=== PATIENT | male | born 1945 | race Caucasian/White ===

== ENCOUNTER 2018-05-17 11:06 | Inpatient (IN) ==
[2018-05-17] MEDS ORDERED: Metoprolol Tartrate 25 MG Tablet PO ONE (12:13)
[2018-05-17] MEDS ORDERED: Chlorhexidine Gluconate 2% 1 Pack (2 Cloths) TOPICAL ONE (12:13)
[2018-05-17] MEDS ORDERED: Dextrose 5%/NaCl 0.9% Inj 1,000 ML IV.SIG SCH (12:30)
[2018-05-17 12:46] LABS: Prothrombin Time 10.5 sec (9.8-11.6)
[2018-05-17] MEDS ORDERED: Sodium Chlor 0.9% Inj 500 ML IV.SIG SCH (13:00)
[2018-05-17] MEDS ORDERED: Bupivacaine PF 0.5% Inj 30 ML Vial ONE (13:21)
[2018-05-17] MEDS ORDERED: fentaNYL Citrate Inj 100 MCG/2 ML Ampul ONE ×2 (13:26→17:05)
[2018-05-17] MEDS ORDERED: Lidocaine PF 1% Inj 5 ML Syringe INFILTRATN ONE (13:41)
[2018-05-17] MEDS ORDERED: Ketorolac Inj 30 MG/ML (IVP) Vial IV.PUSH ONE (13:41)
[2018-05-17] MEDS ORDERED: Glycopyrrolate Inj 1 MG/5 ML Syringe IV.PUSH ONE (13:41)
[2018-05-17] MEDS ORDERED: Sugammadex Inj 200 MG/2 ML Vial IV.PUSH ONE (14:52)
--- NOTE | 2018-05-17 14:52 | P.OP ---
- Preoperative Diagnosis (1) Diverticulitis (2) Colovesical fistula - Postoperative Diagnosis (1) Colovesical fistula (2) Diverticulitis Date of procedure: 05/17/18 Procedure: Cystoscopy and placement of bilateral ureteral catheters Anesthesia: GETA Surgeon: Ethan Fontanez MD Estimated blood loss (mL): 0 Pathology: none sent Operation and Findings: Indication for urologic procedures: Consulted intraoperatively to pass bilateral ureteral catheters to aid in visualization of this patient's ureters during his colorectal procedure. Urologic procedures in detail: Concurrent with the colorectal surgeons, I proceeded with cystoscopy and placement of bilateral ureteral catheters as follows: Initially cystoscopic evaluation was performed utilizing the rigid cystoscope with the 20 Venezuelan sheath and 30 lens. The urethra was patent without stricture formation. Further passive cystoscope within urinary bladder revealed both right and left ureteral orifice ease to be in correct anatomic position. There was a fistula site noted at the bladder dome region. I proceeded with passing a sensor 0.035 wire up the patient's left ureter until a small amount of resistance was met. A 6 Venezuelan open-ended ureteral catheter was then advanced over the wire 25 cm in a cephalad direction. With the catheter in place, the wire was withdrawn and reintroduced through secondary site by the cystoscope. In similar fashion the contralateral side was accomplished. The bladder was then drained of all irrigant fluid and the cystoscope and guidewire were withdrawn. A 16 [place]an 10 cc [place] catheter was then placed and both ureteral catheters were anchored to the [place] via a connector. All 3 catheters were then placed to gravity drainage. This completes the urologic surgery portion of combined procedures on this patient.
[2018-05-17] MEDS ORDERED: Naloxone Inj 0.4 MG/ML Vial IV.PUSH PRN (17:02)
[2018-05-17] MEDS ORDERED: Potassium Chlor 20 mEq Premix 20 MEQ/100 ML PIGGYBACK IV.SIG PRN (17:03)
[2018-05-17] MEDS ORDERED: Potassium Chlor 40 mEq Premix 40 MEQ/100 ML PIGGYBACK IV.SIG PRN (17:03)
--- NOTE | 2018-05-17 17:03 | XR ---
EXAM DATE: 05/17/2018 4:54 PM EDT AGE/SEX: 72 years / Male INDICATIONS: Evaluate for foreign body. Surgical clamp missing. CLINICAL DATA: This is the patient's initial encounter. Patient reports that signs and symptoms have been present for 1 day and indicates a pain score of Nonresponsive. MEDICAL/SURGICAL HISTORY: Non-responsive. Non-responsive. COMPARISON: No prior exams available for comparison. FINDINGS: No unexpected radiopaque foreign bodies in the visualized .. Nasogastric tube and ureteral stent s are evident. CONCLUSION: No radiopaque surgical clamps. Electronically signed by: Malik Jensen MD 05/17/2018 5:01 PM EDT
[2018-05-17] MEDS ORDERED: Morphine Inj 30 MG/30 ML PCA.VIAL PCA ONE (17:08)
[2018-05-17] MEDS ORDERED: KCL 20 mEq/D5W/LR Inj 1,000 ML ONE (17:20)
--- NOTE | 2018-05-17 17:22 | P.BOP ---
Date of procedure: 05/17/18 Procedure: Sigmoid colectomy,LAR. Closure SB fistula. Colonoscopy Anesthesia: GETA Surgeon: Zachary Gonzalez MD Managing Member: Luis A Dc Estimated blood loss (mL): 200 Condition: stable Disposition: ICU
[2018-05-17] MEDS ORDERED: *morphine SULFATE 10 MG/ML PERIprocedure ONLY ONE (17:39)
[2018-05-17] MEDS ORDERED: *Labetalol HCl Inj 100 MG/20 ML Vial PERIprocedural Use ONLY IV.PUSH ONE (17:47)
[2018-05-17] MEDS ORDERED: *Meperidine Inj 25 MG/ML Vial PERIprocedural Use ONLY ONE (17:55)
[2018-05-17 17:59] LABS: Baso % (Auto) 0.2 % (0.0-2.0); Eos % (Auto) 0.2 % (0.0-4.0); Hematocrit 40.4 % (39.0-51.0); Lymph # (Auto) 1.1 th/mm3 (1.0-4.8); Lymph % (Auto) 15.5 % (9.0-44.0); Mean Corpuscular HGB Conc 34.6 % (32.0-36.0); Mean Corpuscular Hemoglobin 32.1 pg (27.0-34.0); Mean Corpuscular Volume 92.8 fL (80.0-100.0); Mean Platelet Volume 8.3 fL (7.0-11.0); Mono # (Auto) 0.6 th/mm3 (0.0-0.9); Mono % (Auto) 8.2 % (0.0-8.0); Neut # (Auto) 5.2 th/mm3 (1.8-7.7); Neut % (Auto) 75.9 % (16.0-70.0); Platelet Count 270 th/mm3 (150-450); Red Blood Count 4.36 mil/mm3 (4.50-5.90); Red Cell Distribution Width 15.2 % (11.6-17.2); White Blood Count 6.8 th/mm3 (4.0-11.0)
[2018-05-17] MEDS ORDERED: *Enalaprilat Inj 1.25 MG/ML Vial IV.PUSH ONE ×2 (18:03→18:32)
[2018-05-17 18:16] LABS: Calcium 8.3 mg/dL (8.5-10.1); Carbon Dioxide 24.1 meq/L (21.0-32.0); Potassium 4.5 meq/L (3.5-5.1)
[2018-05-17] MEDS ORDERED: HYDROmorphone PF Inj 2 MG/ML Vial ONE (18:29)
--- NOTE | 2018-05-17 18:34 | MP ---
cc: Zachary Gonzalez MD,Zachary Cobos,Blake Echevarria,Ed Fontanez,Ethan Bang MD DATE OF OPERATION: 05/17/2018 PREOPERATIVE DIAGNOSIS: Diverticulitis with colovesical fistula. 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 Proceedure: Sigmoid colectomy,Low anterior resection,Repair small bowel fistula. Intraoperative colonoscopy, Omental flap,Ventral hernia repair. ANESTHESIA: General endotracheal. SURGEON: Zachary Gonzalez MD MEDICAL TECHNICIANS: Luis A Dc MD ESTIMATED BLOOD LOSS: 200 mL OPERATING TIME: Two hours and 20 minutes. OPERATIVE FINDINGS: This patient was referred to me for discussion regarding probable colovesical fistula. He was found to have a bout of what sounded like diverticulitis, treated for that and on the CT scan, he was found to have air in the bladder. Dr. Cobos saw the patient and did a cystoscopy and there was debris in the bladder, but no specific masses or carcinoma or other pathology in the bladder, other than the fistula. The patient has had a previous history of prostate cancer with prostatectomy and a small ventral hernia at the superior portion of his incision. At surgery, exploration of his abdominal cavity revealed that he had a short area of diverticulitis in the midsigmoid stuck to the dome of the bladder with 3 loops of small bowel, specifically ileum stuck to the region of the terminal ileum, mid ileum and proximal ileum. The proximal ileum had a small fistula to this process and there was a small 1 cm abscess in the dome of the bladder, which did not perforate into the bladder visibly. A sigmoid colectomy was done with a colorectal anastomosis and the small bowel fistula was excised and closed. The count was missing an instrument at the end of the procedure. It was felt that this was a clerical error, however, an abdominal x-ray was obtained showing no retained instruments. The estimated blood loss was 200 mL. The liver was palpably normal as was the gallbladder and the remainder of the small bowel and colon. An intraoperative colonoscopy was done showing no lesions in the colon. Dr. Gabino Fontanez placed bilateral ureteral catheters to facilitate identification of the ureters. OPERATIVE TECHNIQUE: The patient was placed on the table in supine position. After adequate general endotracheal anesthesia, the abdomen and perineum were prepped and draped in the usual manner. Transverse infraumbilical skin incision was made and carried down through subcutaneous tissue and the rectus muscles staying above the reservoir for his penile prosthesis device. This reservoir was left inflated during the case and remained inflated during the case. Next Dr. Fontanez did a cystoscopy and placed bilateral ureteral catheters. Our attention was turned to the sigmoid colon, which was mobilized along its peritoneal reflection as was the descending colon and up to and including the splenic flexure. The omentum was mobilized from the transverse colon as well in order to place this in the pelvis between the anastomosis and the bladder fistula site as an omental flap. After the ureteral catheters were placed, our attention was turned to the 3 small bowel loops that were stuck down to the process to the dome of the bladder. The distal ileum was stuck along its mesentery and the small bowel itself was not really attached to the process and this was easily dissected free with sharp dissection. The mid portion of the ileum was dissected free and did not contain a fistula. There was a small serosal tear about 0.5 cm long and this was imbricated with interrupted 3-0 Vicryl seromuscular sutures. The more proximal ileum was stuck down densely and was dissected free of the colovesical fistula site and there was indeed a small 0.25 cm fistula site in the small bowel on its antimesenteric border. This was dealt with by placing a [place] 30 stapling device transversely across the antimesenteric border of the small bowel and excising this fistula. The bowel was quite pliable and this procedure did not narrow the small bowel. Next, the colon was dissected off of the dome of the bladder. Using sharp dissection, the fistula was identified. The dome of the bladder was curetted clean with a curette and the bleeding was fulgurated. No definite hole into the bladder could be identified. The hole in the colon was identified. Next, the superior hemorrhoidal vessels were doubly clamped, cut and doubly ligated with 0 Vicryl ligature and the inferior mesenteric vein was likewise clamped, cut, and ligated. Once this was done, the retrorectal space was entered and the dissection was taken down posterior to the rectum and the lateral pelvic peritoneum was incised bilateral down to but not including the full cul-de-sac. Anteriorly, there were large serpiginous veins that were present and these were dissected free of the cleared area of the anterior rectum and fulgurated. Next, the mesorectum was clamped, cut, and ligated with 0 Vicryl ligature and the mid to upper rectum was prepared for the pursestring stapling device. The pursestring stapling device was placed and then the rectum was divided. Once this was done, the most proximal portion of the colon was chosen for division and an ascending branch. A small left colic branch was clamped, cut, and ligated. There was a long marginal vessel along the bowel and the proximal sigmoid colon was cleared and the mesentery was clamped, cut and ligated and a pursestring stapling device was placed on the proximal sigmoid and the bowel was divided and the specimen was removed from the table. The anvil of the 33 Ethicon EEA stapling device was placed in the proximal bowel and the pursestring was tied. Dr. Dc then went below and placed the EEA instrument transanally and the distal pursestring was tied and the instrument was connected, closed and fired, creating the circular anastomosis. There was no tension on the anastomosis. The blood supply was excellent. The anastomosis was inspected and appeared intact. The removed donuts were thick and intact. Dr. Dc then did a colonoscopy to the cecum and no lesions were identified in the colon. He then insufflated the rectum and the colon with air with saline solution in the pelvis and no air leaks were identified. Next, the abdominal cavity and the pelvis was irrigated thoroughly with 3 liters of saline solution and aspirated dry. A #10 Anjel drain was placed through a separate stab wound in the right lower quadrant, placed in the pelvis posterior to the colorectal anastomosis. The previously mobilized omental flap was taken down. The left colic gutter and placed between the rectum and the bladder. The small bowel, which had been previously repaired was placed in the abdominal cavity in an natural resources extension educator manner and then the abdominal cavity was closed in layers after first repairing a small ventral hernia right at the umbilicus at the top of his previous prostatectomy incision. This was repaired internally using the posterior rectus sheath and a running single strand #1 PDS suture. Once this was done, the abdominal cavity was closed in layers using a double-stranded #1 PDS for the posterior rectus sheath, the muscle layer was irrigated thoroughly with a liter of saline solution, aspirated dry and the anterior rectus sheath was closed with a running #1 double stranded PDS as well. Subcutaneous tissue was irrigated thoroughly with a liter of saline solution. The skin was begun to be closed with running 3-0 Vicryl subcuticular sutures, but prior to finishing closure, abdominal x-ray was taken to make sure that there was no retained instruments and the abdominal x-ray was read as normal by the radiology department. The skin was fully closed and dressings were applied. Sponge, needle and instrument counts were deemed to be correct after the x-ray and the patient left the operating room in good condition. MD DELANEY Moser/radha , 05:34 PM , 05:52 PM MTDD
[2018-05-17] MEDS: Primidone 50 MG Tablet PO SCH (18:43)
[2018-05-17] MEDS: Ketorolac Inj 30 MG/ML (IVP) Vial IV.PUSH PRN (20:23)
[2018-05-17] MEDS: ceFAZolin 2 GM Premix Inj 2 GM/100 ML BAG IV.SIG SCH (20:44)
[2018-05-17] MEDS: Zolpidem Tartrate 5 MG Tablet PO PRN (21:51)
[2018-05-17] MEDS: KCL 20 mEq/D5W/LR Inj 1,000 ML IV.CONT SCH (23:08)
[2018-05-18] MEDS: ceFAZolin 2 GM Premix Inj 2 GM/100 ML BAG IV.SIG SCH ×3 (04:42→20:55)
[2018-05-18] MEDS: KCL 20 mEq/D5W/LR Inj 1,000 ML IV.CONT SCH ×4 (04:43→16:32)
[2018-05-18] MEDS: Morphine Inj 30 MG/30 ML PCA.VIAL PCA PRN ×2 (05:05→16:01)
[2018-05-18 07:27] LABS: Baso % (Auto) 0.1 % (0.0-2.0); Hematocrit 37.6 % (39.0-51.0); Hemoglobin 12.8 gm/dL (13.0-17.0); Lymph # (Auto) 1.1 th/mm3 (1.0-4.8); Lymph % (Auto) 10.5 % (9.0-44.0); Mean Corpuscular HGB Conc 34.1 % (32.0-36.0); Mean Corpuscular Hemoglobin 32.2 pg (27.0-34.0); Mean Corpuscular Volume 94.3 fL (80.0-100.0); Mean Platelet Volume 8.3 fL (7.0-11.0); Mono # (Auto) 1.2 th/mm3 (0.0-0.9); Mono % (Auto) 11.1 % (0.0-8.0); Neut # (Auto) 8.3 th/mm3 (1.8-7.7); Neut % (Auto) 78.3 % (16.0-70.0); Platelet Count 240 th/mm3 (150-450); Red Blood Count 3.99 mil/mm3 (4.50-5.90); Red Cell Distribution Width 15.2 % (11.6-17.2); White Blood Count 10.6 th/mm3 (4.0-11.0)
[2018-05-18 07:51] LABS: Calcium 8.2 mg/dL (8.5-10.1); Carbon Dioxide 26.5 meq/L (21.0-32.0); Potassium 4.4 meq/L (3.5-5.1)
[2018-05-18] MEDS: Primidone 50 MG Tablet PO SCH ×3 (09:04→17:47)
[2018-05-18] MEDS: Pantoprazole Inj 40 MG Vial IV.PUSH SCH (09:05)
--- NOTE | 2018-05-18 09:08 | P.PNCS ---
Subjective Colorectal Surgery Post Op Day #: 1 Interval history: Pt C/O no help from nursing staff to get his liquid diet on the counter. Pt with increased tremors. Objective Result Diagrams: 05/18/18 07:00 05/18/18 07:00 Objective Remarks: VS-S Abd: soft,flat,dressing dry. Assessment and Plan - Plan Transfer to floor,D/W RNs.OOB. Needs assistance
[2018-05-18] MEDS: Heparin - SQ 10,000 UNITS/ML Vial SQ SCH ×2 (13:01→20:55)
[2018-05-18] MEDS: Ketorolac Inj 30 MG/ML (IVP) Vial IV.PUSH PRN (17:47)
[2018-05-18] MEDS: Zolpidem Tartrate 5 MG Tablet PO PRN (20:57)
[2018-05-19] MEDS: Heparin - SQ 10,000 UNITS/ML Vial SQ SCH ×4 (04:15→21:59)
[2018-05-19] MEDS: KCL 20 mEq/D5W/LR Inj 1,000 ML IV.CONT SCH ×3 (06:05→15:45)
[2018-05-19] MEDS: ceFAZolin 2 GM Premix Inj 2 GM/100 ML BAG IV.SIG SCH ×3 (06:07→20:00)
[2018-05-19 07:08] LABS: Calcium 8.1 mg/dL (8.5-10.1); Carbon Dioxide 29.1 meq/L (21.0-32.0); Potassium 3.9 meq/L (3.5-5.1)
[2018-05-19 07:12] LABS: Baso % (Auto) 0.1 % (0.0-2.0); Eos % (Auto) 0.5 % (0.0-4.0); Hematocrit 32.9 % (39.0-51.0); Hemoglobin 11.3 gm/dL (13.0-17.0); Lymph # (Auto) 0.9 th/mm3 (1.0-4.8); Lymph % (Auto) 9.2 % (9.0-44.0); Mean Corpuscular HGB Conc 34.5 % (32.0-36.0); Mean Corpuscular Hemoglobin 32.3 pg (27.0-34.0); Mean Corpuscular Volume 93.5 fL (80.0-100.0); Mean Platelet Volume 8.8 fL (7.0-11.0); Mono # (Auto) 1.2 th/mm3 (0.0-0.9); Mono % (Auto) 11.6 % (0.0-8.0); Neut # (Auto) 7.9 th/mm3 (1.8-7.7); Neut % (Auto) 78.6 % (16.0-70.0); Platelet Count 210 th/mm3 (150-450); Red Blood Count 3.52 mil/mm3 (4.50-5.90); Red Cell Distribution Width 15.2 % (11.6-17.2)
[2018-05-19] MEDS: Pantoprazole Inj 40 MG Vial IV.PUSH SCH (10:11)
[2018-05-19] MEDS: Primidone 50 MG Tablet PO SCH ×3 (11:02→17:55)
--- NOTE | 2018-05-19 13:40 | P.PNCS ---
Subjective Colorectal Surgery Post Op Day #: 2 Interval history: Much better today. Tremors controlled . Less pain Objective Result Diagrams: 05/19/18 06:07 05/19/18 06:07 Objective Remarks: VS-S Abd: soft,flat,dressing removed Assessment and Plan - Plan Transfer to floor, Need accurate I&Os. D/W RNs
[2018-05-20] MEDS: Zolpidem Tartrate 5 MG Tablet PO PRN ×2 (02:25→23:49)
[2018-05-20] MEDS: Ketorolac Inj 30 MG/ML (IVP) Vial IV.PUSH PRN (02:25)
[2018-05-20] MEDS: Heparin - SQ 10,000 UNITS/ML Vial SQ SCH ×3 (05:28→22:19)
[2018-05-20] MEDS: KCL 20 mEq/D5W/LR Inj 1,000 ML IV.CONT SCH ×2 (05:28→18:06)
[2018-05-20] MEDS: ceFAZolin 2 GM Premix Inj 2 GM/100 ML BAG IV.SIG SCH ×3 (05:28→22:19)
[2018-05-20] MEDS: KCL 20 mEq/D5W/LR Inj 1,000 ML IV.SIG SCH ×4 (06:00→22:26)
[2018-05-20] MEDS: Primidone 50 MG Tablet PO SCH ×3 (08:58→17:49)
[2018-05-20] MEDS: Pantoprazole Inj 40 MG Vial IV.PUSH SCH (08:59)
--- NOTE | 2018-05-20 16:06 | P.PNCS ---
Subjective Colorectal Surgery Post Op Day #: 3 Interval history: Some nausea. No vomiting. No BMs but small flatus. Objective Result Diagrams: 05/19/18 06:07 05/19/18 06:07 Objective Remarks: VS-S Abd: soft,flat, wound not red. Drain sero sanguinous. Assessment and Plan - Plan Stable, Need accurate I&Os. D/W RNs again Ambulate. Slow PO intake. ? remove drain in AM
[2018-05-21] MEDS: ceFAZolin 2 GM Premix Inj 2 GM/100 ML BAG IV.SIG SCH (06:13)
[2018-05-21] MEDS: Heparin - SQ 10,000 UNITS/ML Vial SQ SCH (06:13)
[2018-05-21] MEDS: Pantoprazole Inj 40 MG Vial IV.PUSH SCH (10:18)
[2018-05-21] MEDS: Primidone 50 MG Tablet PO SCH (10:18)
--- NOTE | 2018-06-06 13:41 | MD ---
cc: Zachary Gonzalez MD,Blake Echevarria,Ed Arce MD DATE OF DISCHARGE: 05/21/2018 ADMITTING DIAGNOSIS: Diverticulitis with colovesical fistula. DISCHARGE DIAGNOSIS: Diverticulitis with colovesical fistula. OPERATIVE PROCEDURE: On 05/17/2018: 1. Sigmoid colectomy with low anterior resection. 2. Repair of small bowel fistula. 3. Intraoperative colonoscopy. 4. Ventral hernia repair. HISTORY: This patient was referred to me for discussion regarding a probable colovesical fistula. He was found to have a bout of what sounded like diverticulitis; treated for that and on the CT scan, he was found to have air in the bladder. Dr. Brandon Cobos saw the patient and did a cystoscopy and there was debris in the bladder, but no specific masses or carcinoma or other pathology in the bladder other than the fistula. The patient has had previous history of prostate cancer with prostatectomy and a small ventral hernia at the superior portion of his incision. LABORATORY DATA: The pathology report on the removed specimen showed a 30 cm segment of colon with diverticulosis and luminal constriction associated with extensive serosal inflammation and fibrosis with numerous foreign body, giant cells consistent with previous perforation and clinical diagnosis of colovesical fistula. The small intestine removed showed intramural and serosal acutely and chronically inflamed granulation tissue with associated foreign body cell reaction compatible with the clinical diagnosis of a fistula. HOSPITAL COURSE: The patient was admitted to the hospital on 05/17/2018, underwent a sigmoid colectomy with low anterior resection and repair of small bowel fistula. On the first postoperative day he was started on a clear liquid diet. On the second postoperative day he was started on full liquid diet and on the third postoperative day, he was started on a regular diet. He was discharged from the hospital on postoperative day #4 in good condition. He was instructed to do no driving for 2 weeks, do no heavy lifting for 6 weeks and to call me with any problems. He was instructed to followup with me in 2 weeks in the office. MD DELANEY Moser/nick , 12:06 PM , 12:38 PM
== END 2018-05-21 13:41 | disposition home or self-care (01) ==
LOC: HSDI 11:06 → N03 19:49 → N07 05-19 15:12
PROVIDERS: ADMIT Colon & Rectal Surgery; ATTEND Colon & Rectal Surgery